=== PATIENT | male | born 1985 | race Caucasian/White ===

== ENCOUNTER 2024-09-07 21:11 | Emergency (ER) | payer OTHER, SELFPAY ==
--- NOTE | ~2024-09-07 | XR_ITS ---
CLINICAL HISTORY: deep laceration 3 view left hand Comparison: None Findings: Bones intact. No dislocations. No significant loss of joint space or osteophytes. No erosions. No radiopaque foreign body. IMPRESSION: 1. No acute findings This document has been electronically signed by: Edwin Penaloza MD, PHD on 09/07/2024 23:22:56
[2024-09-07 21:24] VITALS: BP 146/90; PULSE 116; RESP 12; TEMP 36.8; O2SAT 97; BMI 47.4
--- NOTE | 2024-09-08 00:07 | PC.NURSE ---
Pt resting comfortably on stretcher. Awaiting physician. Callbell in reach.
--- NOTE | 2024-09-08 01:06 | ED_ITS ---
HPI - Extremity Problem General Chief complaint: Extremity Injury, Upper Stated complaint: cut thumb on knife Time Seen by Provider: 09/08/24 01:06 Source: patient and family Mode of arrival: ambulatory Limitations: no limitations History of Present Illness ED Provider: Dr. Cisco Ludwig HPI Narrative: 39-year-old male who presents emergency department for evaluation of laceration to his left thumb. The patient was using a machete to cut down a vine. The machete was dull so he then went into his workshop, attached the machete to a clamp and was about to sharp in the machete when he accidentally cut his left thumb. Patient states that he ran his thumb under water for proximally 1 minute. He states that he saw bone and was unable to move his thumb and he was concerned that he may have injured a tendon. Patient states that his last tetanus shot was given 3 years prior. Related Data Previous Rx's ?Medication ?Instructions ?Recorded cephalexin 500 mg capsule 500 mg PO QID 10 days #40 caps 09/08/24 morphine 15 mg immediate release 15 mg PO Q6H PRN pain #10 tabs 09/08/24 tablet Allergies Allergy/AdvReac Type Severity Reaction Status Date / Time No Known Allergies Allergy Verified 09/07/24 21:29 [facility] Social History Social History Alcohol intake: current Alcohol intake frequency: 0-2 drinks per day Substance Use Type: Marijuana Physical Exam 2 Vital Signs: Vital Signs: Last Vital Signs Temp 98.3 F 09/08/24 03:06 Pulse 87 09/08/24 03:06 Resp 18 09/08/24 03:06 BP 133/72 09/08/24 03:06 Pulse Ox 97 09/08/24 03:06 O2 Del Method Room Air 09/08/24 03:06 BMI result Body Mass Index 47.4 Vital signs revealed an elevated blood pressure. Exam: Left thumb exam: Patient has an irregular shaped 2 cm laceration to the dorsal aspect of the thumb. There is an obvious lacerated tendon noted in the wound. The patient is unable to extend his thumb at the PIP joint. He has good capillary refill. He has a good 2 point discrimination. He has normal light touch. Medications Administered Discontinued Medications Generic Name Dose Route Start Last Admin Trade Name Freq PRN Reason Stop Dose Admin Bacitracin 2 appl 09/08/24 02:12 09/08/24 02:17 Bacitracin Oint 0.9 Gm Packet TOPICAL 09/08/24 02:13 2 appl ONCE ONE Administration Protocol Cefazolin Sodium 2 gm 09/08/24 01:44 09/08/24 01:56 Cefazolin Sodium 1 Gm Vial IV 09/08/24 01:45 2 gm ONCE ONE Administration Lidocaine HCl 5 ml 09/08/24 01:11 09/08/24 02:11 Lidocaine Hcl 1 % Mpf 5 Ml Vial INFILTRATI 09/08/24 01:12 5 ml ONCE STA Administration Lidocaine HCl 5 ml 09/08/24 01:11 09/08/24 02:11 Lidocaine Hcl 1 % Mpf 5 Ml Vial INFILTRATI 09/08/24 01:12 5 ml ONCE ONE Administration Lidocaine HCl 5 ml 09/08/24 01:11 09/08/24 02:59 Lidocaine Hcl 1 % Mpf 5 Ml Vial INFILTRATI 09/08/24 01:12 5 ml ONCE ONE Administration Medical Decision Making Medical Decision Making MDM Narrative: 39-year-old male who presents emergency department for evaluation of laceration to his left thumb. The patient was using a machete to cut down a vine. The machete was dull so he then went into his workshop, attached the machete to a clamp and was about to sharp in the machete when he accidentally cut his left thumb. Patient states that he ran his thumb under water for proximally 1 minute. He states that he saw bone and was unable to move his thumb and he was concerned that he may have injured a tendon. Patient states that his last tetanus shot was given 3 years prior. Physical examination revealed that the patient was unable to extend his thumb at the PIP joint and exploration of the wound revealed an obvious tendon laceration. Patient's sensory exam was normal with normal 2 point discrimination and normal light touch with normal capillary refill. Differential diagnosis: ?Includes but is not limited to laceration, tendon laceration, nerve injury, vascular injury Course: The patient's exam is consistent with an extensor tendon injury to the thumb. I did discuss over tiger text management of this laceration and tendon injury with the on-call orthopedic physician early childhood teacher assistant, Brittany Stevens. She recommended irrigating the wound, IV antibiotics and closing the wound. She also recommended placing the thumb in a thumb spica splint. The patient's wound was prepped with Betadine, anesthetized with 1% lidocaine and then irrigated with 200 cc of normal saline under pressure using an 18 gauge needle 20 cc syringe. The wound was then closed with 3.0 nylon sutures times 9 stitches. The patient was given Ancef 2 g IV. Patient was started on Keflex 500 mg 4 times a day for 10 days. He was advised to take Tylenol for pain and for pain not relieved by Tylenol he was prescribed morphine 15 mg every 6 hours as needed for pain. Patient was advised to contact the orthopedic office tomorrow to make a follow-up appointment with our hand surgeon, Dr. Paulina Smith. The patient did have an x-ray of his thumb and there is no acute fracture noted by me or the radiologist. Admission/Observation Consideration of admission/observation: Escalation of care including admission/observation considered (No) Radiology Impression Discussion of test interpretation with radiology: I have reviewed the radiologist's reading. Radiologist Impression: 3 view left hand Comparison: None Findings: Bones intact. No dislocations. No significant loss of joint space or osteophytes. No erosions. No radiopaque foreign body. IMPRESSION: 1. No acute findings This document has been electronically signed by: Edwin Penaloza MD, PHD on 09/07/2024 23:22:56 Independent Historian Clinical information obtained from an independent historian. History obtained from or confirmed by: Parent (Mother) Prescription Management I considered prescription management with: Pain Medication (Morphine) and Antibiotic (Keflex) Procedures Laceration Left thumb laceration: Site: hand (Thumb) Side (If applicable): left (Thumb) Size (cm): 2.0 Description: irregular Depth: involves muscle layer and involves tendon Local Anesthetic: lidocaine 1% Amount of anesthesia used (mL): 15 Pre-repair: wound explored (Extensor tendon laceration noted, no foreign body) and irrigated extensively (200 cc of normal saline using a 20 cc syringe and an 18 gauge needle) Skin layer closed with: nylon Size (cm): 3-0 Number of sutures: 9 Technique: simple, interrupted Orthopedic Splinting/Casting Left thumb spica splint: Side: left Upper Extremity Injury Location: finger (Thumb) Upper Extremity Immobilizer: thumb spica (3 in x 12 in ortho glass used) Additional Comments: Bacitracin applied to the wound then nonstick dressing was applied. This was held in place with Kerlix gauze. Three layers of cast padding in his then placed over the thumb wrist and forearm. 3 in x 12 in ortho glass used to create a thumb spica splint held in place my to 2 in Ramón wraps. After the splint was formed, patient's thumb was neurovascularly intact. Discharge Plan Discharge Clinical Impression: Laceration of left thumb, Laceration of tendon of thumb Patient Disposition: Home, Self-Care Instructions: Laceration (ED) Additional Instructions: You did cut an extensor tendon of your thumb. Keep the splint on until your re-evaluated by the orthopedic hand surgeon. Take Keflex (cephalexin) 500 mg pills, 1 pill 4 times a day for 7 days. Take Tylenol (acetaminophen) 2 pills every 6 hours as needed for pain. For pain not relieved by Tylenol take morphine 15 mg pills, 1 pill every 6 hours as needed for pain. This medication will make you sleepy, do not drive or work while taking this medication. Morphine is a narcotic medication and can be addicting. If you are concerned about addiction you can ask the pharmacist for less pills or do not get this prescription filled. Follow-up with our orthopedic hand surgeon, Dr. Smith within 2-5 days. Please call the office tomorrow morning to schedule an appointment. Please return to the emergency department if your symptoms get worse or if you develop any symptoms that are concerning to you. Prescriptions: New cephalexin 500 mg capsule 500 mg PO QID 10 Days Qty: 40 0RF morphine 15 mg tablet 15 mg PO Q6H PRN (Reason: pain) Qty: 10 0RF Rx Instructions: Partial Fill upon patient request. Referrals: Paulina Smith MD [Physician] - 5 days (Left thumb extensor tendon injury) Stand Alone Forms: Work/School Release Interventions: ED Discharge Assessment Last Done: 09/08/24 03:06 Discharge Date/Time: 09/08/24 03:20 Print Language: Slovenian
[2024-09-08] MEDS: ceFAZolin Sodium 1 GM VIAL 2 GM IV (01:56)
[2024-09-08] MEDS: Lidocaine HCl 1 % MPF 5 ML VIAL INFILTRATI ×3 (02:11→02:59)
[2024-09-08] MEDS: Bacitracin Oint 0.9 GM PACKET 2 APPL TOPICAL (02:17)
--- NOTE | 2024-09-08 03:00 | PC.NURSE ---
Per Dr. Ludwig, no lactic or cultures needed prior to antibiotic administration as this is prophylactic.
[2024-09-08 03:06] VITALS: BP 133/72; PULSE 87; RESP 18; TEMP 36.8; O2SAT 97
== END 2024-09-08 03:20 | disposition home or self-care (01) ==
PROVIDERS: Emergency Provider Emergency Medicine Emergency Medical Services
DX: S56.322A Laceration of extensor or abductor muscles, fascia and tendons of left thumb at forearm level, initial encounter (principal); S61.012A Laceration without foreign body of left thumb without damage to nail, initial encounter; W27.8XXA Contact with other nonpowered hand tool, initial encounter; Y93.89 Activity, other specified; Y92.9 Unspecified place or not applicable; Y99.9 Unspecified external cause status
CPT/HCPCS: 12041; 29130; 73130; 96374; 99284; J0690; J2003

== ENCOUNTER → 2024-09-07 22:37 | Outpatient (BNV) | payer OTHER, SELFPAY | PROVIDERS: Visit Provider General Practice | DX: S61.412A Laceration without foreign body of left hand, initial encounter (principal) | CPT/HCPCS: 73130 ==

== ENCOUNTER 2024-09-09 09:09 | Outpatient (AMB) | payer OTHER, SELFPAY ==
[2024-09-09 09:27] VITALS: BMI 47.4
--- NOTE | 2024-09-09 09:27 | MHC.OFFVIS ---
Vital Signs 09/09/24 09:27 Height 6 ft 1 in Weight 359 lb BMI 47.4 Intake Visit Reasons: ED f/u Laceration of left thumb Intake Note: Harpreet 39 yr old right hand dominant male presents today for a ED follow up visit for his left thumb laceration. Patient was using a machete to cut down a vine. The machete was dull so he then went into his workshop, attached the machete to a clamp and was about to sharp in the machete when he accidentally cut his left thumb. Patient states that he ran his thumb under water for proximally 1 minute. He states that he saw bone and was unable to move his thumb and he was concerned that he may have injured a tendon. His wound was cleaned, he was given a splint and referred to orthopedic. Currently states he is able to bend his thumb but is having difficulty lifting his thumb up. Denies numbness or tingling. Pain is currently a 2/10. Allergies No Known Allergies Allergy (Verified 09/09/24 09:32) HPI HPI ED f/u Laceration of left thumb: Details: Harpreet is a 39 year old right hand dominant man who presents for a left thumb laceration, DOI: 09/07/24. He was seen in the ED same day where this was cleaned & sutured, and given a course of Abx. He was doing yard work at home, and trying to sharpen a Machete. He had it clamped on his work table with the blade facing him, reached out to grab something from his work bench and inadvertently cut the dorsal aspect of his thumb on the sharp tip of the machete. He complains of pain & an inability to extend his thumb. He says he thought he saw bone in the laceration, and is worried he injured a tendon. He has been wearing his thumb splint. He says his pain is better this morning. He denies any numbness or tingling. 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 He says he can avoid those duties if necessary. 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 Review of Systems Const All systems reviewed & are unremarkable except as noted in HPI and below Physical Exam Vital Signs: BMI result Body Mass Index 47.4 Const General: cooperative, healthy appearing and no acute distress Orientation/consciousness: patient oriented x3 HEENT Head: Yes normocephalic and Yes atraumatic Eyes EOM: EOMs intact bilaterally Resp Effort & Inspection: normal respiratory effort and able to speak in complete sentences Cardio Jugular venous distension: no JVD Skin General skin exam: turgor normal Rashes: no rashes Neuro General: patient oriented x3 Extrem Other: Evaluation of Left Upper Extremity: The patient is alert, oriented, and in no acute distress Neuro: Median, Ulnar, Radial nerves motor and sensory intact and sensation is normal to the tips of all digits, including the pad of the thumb Vascular: Cap refill brisk ROM: He can bring all his fingers closed to a fist He can extend his index, middle, ring, and small fingers No extension at the thumb IP joint Skin: He has a longitudinally oriented S-shaped incision over left thumb dorsal aspect, including MCP joint, with one picture of a lacerated tendon seen on images from ED note from 09/08/24. The laceration is relatively clean with minimal serosanguineous drainage. Radiographs: 3 views of the left hand from 09/07/24 were reviewed by me today in clinic. They show no fractures or dislocations. Psych Appearance: grossly normal Affect: normal affect Attitude: cooperative Assessment & Plan Assessment & Plan (1) Laceration of left thumb with tendon involvement: Code(s): S61.012A - Laceration without foreign body of left thumb without damage to nail, initial encounter Category: Medical Plan Assessment & Plan: 1. Left thumb EPL tendon laceration, possibly EPB DOI: 09/07/24 2. Left thumb dorsal laceration Over the MCP joint DOI: 09/07/24 I educated him about these conditions I discussed operative and non-operative treatment options The patient would like to proceed with surgery The risks and benefits of operative treatment were discussed with the patient and the patient wishes to proceed with surgery. These risks include, but are not limited to risk of damage to blood vessels, nerves, tendons, infection, recurrence, incomplete relief of preoperative symptoms, persistent pain, possible need for further surgery and the risks associated with regional blocks and anesthesia. The plan is to take the patient to the operating room sometime on 09/11/24 for the following procedures: 1. Left thumb extensor tendon repair, under general 2. Left thumb I&D, under general All of the preoperative paperwork including the consent was reviewed today. All the patient's questions were answered. The patient understands that they will be contacted by our office machines teacher soon to schedule this procedure He denies Diabetes, blood thinners, asthma, heart, lung, kidney issues Scribed for Paulina Smith MD by Aj Valle, medical care manager, on 09/09/24 at 9:40 AM, EST. Medications: Discontinued morphine Partial Fill upon patient request. Discontinued Reason: Patient Completed Course 15 mg PO Q6H PRN 10 tabs 0RF pain Coding Level of Care Code New Pt Level 4 (85089) Diagnoses Laceration of left thumb with tendon involvement S61.012A
== END 2024-09-09 10:15 | disposition home or self-care (01) ==
LOC: HO.HOS 09:09
PROVIDERS: Visit Provider Orthopaedic Surgery
DX: S61.012A Laceration without foreign body of left thumb without damage to nail, initial encounter (principal)
CPT/HCPCS: 99204

== ENCOUNTER 2024-09-11 09:10 | Day surgery (SDC) | payer OTHER, SELFPAY ==
--- NOTE | 2024-09-10 10:18 | HO.ANESPROP2 ---
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 Allergies Allergy/AdvReac Type Severity Reaction Status Date / Time No Known Allergies Allergy Verified 09/11/24 09:17 Home Medications ?Medication ?Instructions ?Recorded ?Confirmed ?Last Taken ?Type omeprazole 40 mg capsule,delayed mg 09/11/24 09/11/24 09/11/24 History release Assessment and Plan Assessment Anesthesia Assessment: Chart Reviewed Documented by User: Kellen Chao MD 09/11/24 09:42 PMFSH Past Medical History Medical History Scalp cyst Family History Family history of problems with anesthesia: No Surgical History History of Problems with Anesthesia: No Social History Social History Alcohol intake: current Alcohol intake frequency: 0-2 drinks per day Substance Use Type: Marijuana Advance Directives: No Advance Directives Information Provided: Yes Current occupational status: employed 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 Allergies Allergy/AdvReac Type Severity Reaction Status Date / Time No Known Allergies Allergy Verified 09/11/24 09:17 Home Medications ?Medication ?Instructions ?Recorded ?Confirmed ?Last Taken ?Type omeprazole 40 mg capsule,delayed mg 09/11/24 09/11/24 09/11/24 History release Exam Airway Mallampati Class: II TM Dist: >3cm Neck ROM: Full Heart: rrr Lungs: cta Assessment and Plan Assessment Anesthesia Assessment: Anesthesia Plan Discussed Final Anesthetic Review Family History of Problems with Anesthesia: No History of Problems with Anesthesia: No NPO: Yes ASA Class: II Final Preanesthetic Review: No Changes in Pt Med Stat, Meds/Allgs Chart Reviewed, Consent Obtained/Reviewed and Anes Risks/Benef Reviewed Patient Risk: Intermediate Procedure Risk: Low Anesthetic Plan Anesthetic Plan: GA Disposition: Standard PACU
[2024-09-11] VITALS (7 sets, daily range): BP systolic 100–146; BP diastolic 60–95; PULSE 79–96; RESP 12–16; TEMP 36.4–37.2; O2SAT 95–99; BMI 39.3
[2024-09-11] MEDS: Lactated Ringers 1,000 ML 100 ML IVCONT (09:59)
[2024-09-11] MEDS: Famotidine/PF 20 MG/2 ML VIAL IVPUSH (10:07)
--- NOTE | 2024-09-11 11:03 | MHC.SHP ---
Pre-Procedural Eval Section A - 24 Hr Update-Section A only Date of Service: 09/11/24 The patient is an INPATIENT: No Changes since office visit: No Cold of Flu in the past 2 weeks, No New Medical Problems, No Changes in Medication and No Patient answered all questions The patient has been examined within 24 hours of the surgical procedure. The History & Physical has been completed within 30 days and I have reviewed it.: Yes Section B - Complete if H&P > 30 days Chief Complaint: Laceration of extensor muscle, fascia and tendon Allergies: Allergies Allergy/AdvReac Type Severity Reaction Status Date / Time No Known Allergies Allergy Verified 09/11/24 09:17 Plan I have reviewed the history and physical and performed a pertinent physical examination on my patient. No changes have occurred unless specified. Time Spent With Patient Time: Total time managing care of this patient today ____ minutes.
--- NOTE | 2024-09-11 11:04 | P.OP_ITS ---
Operative Note Operative Note Date of Service: 09/11/24 Narrative: Operative Note Narrative: Preop diagnosis: 1. Left dorsal thumb laceration 2. Left thumb EPL tendon laceration Postop diagnosis: 1. Left dorsal thumb laceration 6 cm 2. Laceration, multi segmental of left EPL tendon over the proximal phalanx 3. Laceration of the joint capsule to the left thumb MCP joint resulting in an open joint 4. Laceration of the left thumb MCP joint ulnar collateral ligament Procedure: 1. Left thumb extensor pollicis longus segmental laceration, Tendon repair 2. Left thumb I and D of open MCP joint 3. Left thumb MCP joint ulnar collateral ligament repair 4. Left thumb I and D open fracture of the ulnar base of the proximal phalanx 5. Left dorsal thumb wound repair 6 cm Surgeon: Paulina Smith MD Fiberglass Roller: Salvatore LUCERO Anesthesia: General Anesthesia Findings: Dorsal laceration of the left thumb over the proximal phalanx extending over the MCP joint to the distal aspect of the 1st metacarpal. Segmental laceration of the EPL tendon over the proximal phalanx resulting in a free segment of EPL tendon measuring almost 2 cm in length. The laceration also extended across the dorsal and ulnar aspect of the MCP joint resulting in an open MCP joint and a laceration of the MCP joint ulnar collateral ligament origin from the ulnar aspect of the 1st metacarpal head. Implants: None Tourniquet time: 43 minutes EBL: 5.0 ml Specimen: None Drains: None Complications: None Disposition: Brought to the recovery room in stable condition Plan: I changed his antibiotics to Augmentin as he had been using the machete in the yard prior to this accident. He will start these antibiotics today. Follow-up next week for wound check. He will need to be placed in a thumb spica splint holding the IP joint in extension. Anticipate suture removal at 2 weeks, and placement in a short-arm thumb spica cast until 5-6 weeks postop Indications: The patient is a 39 year old man with dirty machete laceration to the dorsum of the thumb with extensor tendon involvement. . The risks and benefits of operative treatment, including but not limited to risk of damage to blood vessels, nerves, tendons, infection, recurrence, persistent pain or numbn ess, incomplete resolution of preoperative symptoms, or need for further surgery were discussed with the patient and they wished to proceed with surgery. Procedure: Once consent was obtained patient was brought back to the operating suite and placed in the operating table in a supine position. . Perioperative antibiotics and anesthesia was administered by the anesthesia team. A tourniquet was applied to the proximal aspect of the left upper extremity and the limb was prepped and draped in a standard surgical fashion. The limb was elevated exsanguinated with Esmarch bandage and the tourniquet inflated to 250 mm of mercury for a total tourniquet time of 43 minutes. The sutures were removed from this 6 cm long, longitudinally oriented slightly S shaped laceration roughly centered over the dorsal aspect of the MCP joint of the patient's left thumb. I then explored this wound. Within this wound we found a segmental laceration of the EPL tendon over the proximal phalanx with a free fragment of tendon measuring almost 2 cm in length. We also found a laceration extending into the dorsal ulnar aspect of the left thumb MCP joint resulting in an open MCP joint. We also appreciated a bony fracture fragment off of the ulnar base of the proximal phalanx with a matching roughly 7 mm diameter area of matching cancellous bone on the ulnar base of the proximal phalanx. This being an open fracture care was taken to also debride this open bone. We also found the ulnar collateral ligament to be lacerated off of its origin in the ulnar head of the 1st metacarpal. We did not find any debris or evidence of infection. We set about with our I&D. The wound was copiously irrigated with normal saline. We used a small curette on the open fracture area in the base of the proximal phalanx. We also used an Angiocath on a 10 mL syringe to irrigate within the MCP joint of the thumb. I then repaired the ulnar collateral ligament and the dorsal capsule of the MCP joint using some 4-0 FiberWire suture. I then repaired the EPL tendon segment 1st to the distal aspect of the EPL tendon using 4-0 FiberWire, then I reduced the proximal end of the EPL tendon to the segment and repaired this portion of the EPL tendon again using some 4-0 FiberWire. At this point the tourniquet was deflated and hemostasis obtained with a brief period of local pressure The wound was again copiously irrigated with normal saline. I then repaired the 6 cm long laceration using 4-0 Prolene suture. The wound was infiltrated with some 1% lidocaine with epinephrine for postop pain control and a sterile dressing was applied. The patient was also placed in a short-arm thumb spica splint extending to the tip of the thumb holding the IP joint in extension. The patient appears to have tolerated the procedure well and with no complications. All digits were well vascularized conclusion of the case.
[2024-09-11] MEDS: ceFAZolin Sodium/Dextrose,Iso 2 GM/50 ML PIGGYBACK IV (11:35)
== END 2024-09-11 14:55 | disposition home or self-care (01) ==
PROVIDERS: Visit Provider Orthopaedic Surgery
PROC: (CPT 26418; principal; 2024-09-11 11:20)
DX: S66.222A Laceration of extensor muscle, fascia and tendon of left thumb at wrist and hand level, initial encounter (principal); S61.012A Laceration without foreign body of left thumb without damage to nail, initial encounter; S53.32XA Traumatic rupture of left ulnar collateral ligament, initial encounter; W26.8XXA Contact with other sharp object(s), not elsewhere classified, initial encounter; Y93.89 Activity, other specified; Y92.69 Other specified industrial and construction area as the place of occurrence of the external cause; Y99.9 Unspecified external cause status; Z79.899 Other long term (current) drug therapy
CPT/HCPCS: 26418; 26540; 26735; 11012; J0131; J0330; J0690; J1100; J1308; J1885; J2003; J2004; J2250; J2405; J2704; J2795; J3010

== ENCOUNTER → 2024-09-11 09:10 | Outpatient (BNV) | payer OTHER, SELFPAY | PROVIDERS: Visit Provider Orthopaedic Surgery | DX: S63.642A Sprain of metacarpophalangeal joint of left thumb, initial encounter (principal); S61.012A Laceration without foreign body of left thumb without damage to nail, initial encounter; S66.221A Laceration of extensor muscle, fascia and tendon of right thumb at wrist and hand level, initial encounter; S62.202B Unspecified fracture of first metacarpal bone, left hand, initial encounter for open fracture | CPT/HCPCS: 11012; 26418; 26540 ==

== ENCOUNTER 2024-09-16 12:54 | Outpatient (AMB) | payer OTHER, SELFPAY ==
--- NOTE | 2024-09-16 13:12 | MHC.OFFVIS ---
Vital Signs 09/16/24 13:18 Height 6 ft 1 in Handedness Right Intake Visit Reasons: PO LT thumb I&D/ext tend repair 09/11/24 AR Intake Note: Harpreet is a 39 year old right hand dominant male who presents today for a wound check s/p left thumb I&D extensor tendon repair 09/11/24 AR. Patient reports he is doing well. Having some soreness, 05/10 pain on the pain scale. Allergies No Known Allergies Allergy (Verified 09/16/24 13:17) HPI HPI PO LT thumb I&D/ext tend repair 09/11/24 AR: Details: The patient is a 39-year-old man who sustained a laceration to the dorsal aspect of his left thumb and EPL tendon while trying to clean a machete in his garage. Date of injury was 09/07/2024. He was taken to the operating room on 09/11/2024 and underwent the following procedures: 1. Left thumb extensor pollicis longus segmental laceration, Tendon repair 2. Left thumb I and D of open MCP joint 3. Left thumb MCP joint ulnar collateral ligament repair 4. Left thumb I and D open fracture of the ulnar base of the proximal phalanx 5. Left dorsal thumb wound repair 6 cm He said that he is doing well and not taking any pain medication. 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 The laceration over the dorsal aspect of his left thumb appears to be healing well with no erythema drainage or evidence of infection. Sutures are in place. The thumb is held in an extended position. He can bring his fingers close to a fist and back into extension Assessment & Plan Assessment & Plan (1) Laceration of left thumb with tendon involvement: Code(s): S61.012A - Laceration without foreign body of left thumb without damage to nail, initial encounter Category: Medical (2) Open fracture of left thumb: Code(s): S62.502B - Fracture of unspecified phalanx of left thumb, initial encounter for open fracture Category: Medical Plan Assessment and plan: 1. Left dorsal thumb laceration from a machete s/p: 1. Left thumb extensor pollicis longus segmental laceration, Tendon repair 2. Left thumb I and D of open MCP joint 3. Left thumb MCP joint ulnar collateral ligament repair 4. Left thumb I and D open fracture of the ulnar base of the proximal phalanx 5. Left dorsal thumb wound repair 6 cm Date of surgery 09/11/2024 Patient appears to be doing well postoperatively I educated him about the postoperative course We placed a new dressing and placed him back in a short-arm thumb spica splint. He knows not to take it off or bend his thumb. Follow up next week for a wound check and placement in a short-arm thumb spica cast. Finish all of his antibiotics Coding Level of Care Code Global (24670) Diagnoses Laceration of left thumb with tendon involvement S61.012A Open fracture of left thumb S62.502B
== END 2024-09-16 14:16 | disposition home or self-care (01) ==
LOC: HO.HOS 12:55
PROVIDERS: Visit Provider Orthopaedic Surgery
DX: S61.012A Laceration without foreign body of left thumb without damage to nail, initial encounter (principal); S62.502B Fracture of unspecified phalanx of left thumb, initial encounter for open fracture
CPT/HCPCS: 99024

== ENCOUNTER 2024-09-24 10:20 | Outpatient (AMB) | payer OTHER, SELFPAY ==
--- NOTE | 2024-09-24 10:22 | A.OFFVIS_ITS ---
Vital Signs 09/24/24 10:22 Height 6 ft 1 in Intake Visit Reasons: PO LT thumb I&D/ext tend repair 09/11/24 AR Intake Note: Harpreet 39 yr old male presents today for his PO visit for his left thumb I&D/ext tend repair 09/11/24 AR. Area cleaned, sutures removed and steri strips applied. State he has no pain and has not taken any of the pain medication. Allergies No Known Allergies Allergy (Verified 09/24/24 10:30) HPI HPI PO LT thumb I&D/ext tend repair 09/11/24 AR: Details: Harpreet is a 39 year old right hand dominant man who sustained a laceration to the dorsal aspect of his left thumb and EPL tendon while trying to clean a machete in his garage. DOI: 09/07/24. He was taken to the operating room on 09/11/24 and underwent the following procedures: 1. Left thumb extensor pollicis longus segmental laceration, Tendon repair 2. Left thumb I&D of open MCP joint 3. Left thumb MCP joint ulnar collateral ligament repair 4. Left thumb I and D open fracture of the ulnar base of the proximal phalanx 5. Left dorsal thumb wound repair 6cm He said that he is doing well overall. 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 The laceration over the dorsal aspect of his left thumb appears to be healing well with no erythema drainage or evidence of infection. Sutures removed and steri-strips applied The thumb is held in an extended position. He can bring his fingers close to a fist and back into extension Sensation intact to the tips of the thumb Psych Appearance: grossly normal Affect: normal affect Attitude: cooperative Assessment & Plan Assessment & Plan (1) Laceration of left thumb with tendon involvement: Code(s): S61.012A - Laceration without foreign body of left thumb without damage to nail, initial encounter Category: Medical (2) Open fracture of left thumb: Code(s): S62.502B - Fracture of unspecified phalanx of left thumb, initial encounter for open fracture Category: Medical Plan Assessment and plan: 1. Left dorsal thumb laceration from a machete s/p: 1. Left thumb extensor pollicis longus segmental laceration, Tendon repair 2. Left thumb I and D of open MCP joint 3. Left thumb MCP joint ulnar collateral ligament repair 4. Left thumb I and D open fracture of the ulnar base of the proximal phalanx 5. Left dorsal thumb wound repair 6 cm DOS: 09/11/24 DOI: 09/07/24 Patient appears to be doing well postoperatively I educated him about the postoperative course Sutures removed today. He was placed in a short arm thumb spica cast, to be warn for the next 4 weeks I explained the signs and symptoms of infection, if the patient develops any new or worsening erythema, drainage, pain, or warmth they should contact the clinic or attend the ED. He has completed his Abx as instructed. I discussed activity modifications, he is to lift nothing heavier than a cellphone for the next 4 weeks He will perform gentle ROM exercises at home He works in sales, primarily on the computer. I encouraged him to use his hand for typing and other gentle finger ROM activities, with a 2lb weight limit for the next 4 weeks He will follow up in 4 weeks with Salvatore to see how he is doing. I ordered OT hand therapy to begin in 4 weeks, after his cast is removed.? Scribed for Paulina Smith MD by Aj Valle, lpn medical assistant, on 09/24/24 at 10:40 AM, EST. Orders: Orders OT Evaluation and Treatment Today S61.012A - Laceration without foreign body of left thumb without damage to nail, initial encounter, S62.502B - Fracture of unspecified phalanx of left thumb, initial encounter for open fracture Coding Level of Care Code Global (81011) Diagnoses Laceration of left thumb with tendon involvement S61.012A Open fracture of left thumb S62.502B
== END 2024-09-24 11:29 | disposition home or self-care (01) ==
LOC: HO.HOS 10:20
PROVIDERS: Visit Provider Orthopaedic Surgery
DX: S61.012A Laceration without foreign body of left thumb without damage to nail, initial encounter (principal); S62.502B Fracture of unspecified phalanx of left thumb, initial encounter for open fracture
CPT/HCPCS: 99024

== ENCOUNTER 2024-10-22 10:13 | Outpatient (AMB) | payer OTHER, SELFPAY ==
--- NOTE | 2024-10-22 10:17 | A.OFFVIS_ITS ---
Vital Signs 10/22/24 10:29 Height 6 ft 1 in Weight 290 lb BMI 38.3 Handedness Right Intake Visit Reasons: PO LT thumb I&D/ext tend repair 09/11/24 AR Intake Note: Harpreet is a 39 year old right hand dominant man who presents today post operatively for the following procedures, DOS: 09/11/24: 1. Left thumb extensor pollicis longus segmental laceration, Tendon repair 2. Left thumb I&D of open MCP joint 3. Left thumb MCP joint ulnar collateral ligament repair 4. Left thumb I&D open fracture of the ulnar base of the proximal phalanx 5. Left dorsal thumb wound repair 6cm At his last visit he was placed in a short arm cast and was advise to limit use of left hand. Reports mild tingling in the left thumb. He says he has sensation in the left thumb and extreme stiffness. He states therapy on October 27 2024. Cast was removed in office and xrays updated. Allergies No Known Allergies Allergy (Verified 10/22/24 10:28) HPI HPI PO LT thumb I&D/ext tend repair 09/11/24 AR: Details: Harpreet is a 39 year old right hand dominant man who presents today post operatively for the following procedures, DOS: 09/11/24: 1. Left thumb extensor pollicis longus segmental laceration, Tendon repair 2. Left thumb I&D of open MCP joint 3. Left thumb MCP joint ulnar collateral ligament repair 4. Left thumb I&D open fracture of the ulnar base of the proximal phalanx 5. Left dorsal thumb wound repair 6cm At his last visit he was placed in a short arm cast and was advise to limit use of left hand. Reports mild tingling in the left thumb. He says he has sensation in the left thumb and extreme stiffness. He states therapy on October 27 2024. 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 The laceration over the dorsal aspect of his left thumb appears to be healing well with no erythema drainage or evidence of infection. Sutures removed and steri-strips applied The thumb is held in an extended position. He can bring his fingers close to a fist and back into extension Sensation intact to the tips of the thumb Psych Appearance: grossly normal Affect: normal affect Attitude: cooperative Assessment & Plan Assessment & Plan (1) Laceration of left thumb with tendon involvement: Code(s): S61.012A - Laceration without foreign body of left thumb without damage to nail, initial encounter Category: Medical (2) Open fracture of left thumb: Code(s): S62.502B - Fracture of unspecified phalanx of left thumb, initial encounter for open fracture Category: Medical Plan Assessment and plan: 1. Left dorsal thumb laceration from a machete s/p: 1. Left thumb extensor pollicis longus segmental laceration, Tendon repair 2. Left thumb I and D of open MCP joint 3. Left thumb MCP joint ulnar collateral ligament repair 4. Left thumb I and D open fracture of the ulnar base of the proximal phalanx 5. Left dorsal thumb wound repair 6 cm DOS: 09/11/24 DOI: 09/07/24 Patient appears to be doing well postoperatively I educated him about the postoperative course Patient will start OT this week to begin early range of motion of the left thumb Patient is also provided with a comfort cool thumb spica brace to be worn with daytime activities to protect the surgery site I discussed activity modifications, he is to lift nothing heavier than a cellphone for the next 4 weeks He will perform gentle ROM exercises at home He works in sales, primarily on the computer. I encouraged him to use his hand for typing and other gentle finger ROM activities, with a 2lb weight limit for the next 4 weeks Follow-up in 4 weeks for [id number] check, sooner with any acute concerns Coding Level of Care Code Global (85372) Diagnoses Laceration of left thumb with tendon involvement S61.012A Open fracture of left thumb S62.502B
[2024-10-22 10:29] VITALS: BMI 38.3
--- OUTSIDE RECORDS SUMMARY | 2024-10-22 10:46 | XMS_ITS | Clinical Summary ---
Author Organization 175 [facility] Address [address] [place] [address] Phone Care Team Providers Care Amphibious Operations Officer Name Role Phone Unavailable Primary Care Provider Unavailabl e Surgical History Surgery Date Site/Laterality Comments OTHER SURGICAL HISTORY 1997 PROCEDURE: DC UNLISTED PROCEDURE LACRIMAL SYSTEM Medical History Medical History Date Comments Eczema 03/08/2011 DX:Eczema Family History Medical History Relation Name Comments Sleep apnea Father Other cancer Maternal Grandmother Breast cancer Paternal Grandmother Relation Name Status Comments Father Maternal Grandmother Paternal Grandmother Social History Tobacco Use Types Packs/Day Years Used Date Smoking Tobacco: Never Smokeless Tobacco: Never Alcohol Use Standard Drinks/Week Comments Yes 8.3 (1 standard drink = 0.6 oz p ure alcohol) Sex and Gender Information Value Date Recorded Sex Assigned at Not on file Legal Sex Male 2:01 AM EST Gender Identity Not on file Sexual Orientation Not on file Obstetrics History Plan of Treatment Upcoming Encounters Date Type Department Care Team ([facility] Contact Info) Description 11/03/2024 11:00 AM EDT Office Visit General Surgery [facility] [address] [phone] Pito Eason MD [address] [address] Health Maintenance Due Date Last Done Comments COVID-19 Vaccine (2023- season) 2023 DTaP,Tdap,and Td Vaccines (8 - Td or Tdap) 10/07/2024 10/07/2014, 06/22/1998, 05/03/1992, Additional history exists Cholesterol Screening (Lipid Panel) 10/15/2024 Depression Screening 10/15/2024 HIV Screening 10/15/2024 Hepatitis C Screening 10/15/2024 Social Influencers of Health Screening 10/15/2024 Influenza Vaccine (Season Ended) 2024 IPV Vaccines Completed 05/03/1992, 10/21, 1987, Additional history exists MMR Vaccines Completed 06/22/1998, 09/01/1988 Hepatitis B Vaccines Completed 06/09/1999, 07/26/1998, 06/22/1998 Meningococcal ACWY Vaccine Completed 10/16/2005 HIB Vaccines Aged Out No longer eligi ble based on patient's age to complete this topic HPV Vaccines Aged Out No longer eligi ble based on patient's age to complete this topic Hepatitis A Vaccines Aged Out No long er eligible based on patient's age to complete this topic Meningococcal B Vaccine Aged Out No l onger eligible based on patient's age to complete this topic Pneumococcal Vaccine: Pediatrics (0 to 5 Years) and At-Risk Patients (6 to 64 Years) Aged Out No longer eligible based on patient's age to complete this topic RSV Immunization Patients Under 20 months Aged Out No longer eligible based on patient's age to complete this topic Varicella Vaccines Aged Out No longer eligible based on patient's age to complete this [place] [id number] [employer]
== END 2024-10-22 10:47 | disposition home or self-care (01) ==
LOC: HO.HOS 10:14
DX: S61.012A Laceration without foreign body of left thumb without damage to nail, initial encounter (principal); S62.502B Fracture of unspecified phalanx of left thumb, initial encounter for open fracture
CPT/HCPCS: 99024

== ENCOUNTER 2024-11-19 13:26 | Outpatient (AMB) | payer OTHER, SELFPAY ==
--- NOTE | 2024-11-19 13:33 | A.OFFVIS_ITS ---
Vital Signs 11/19/24 13:36 Height 6 ft 1 in Weight 290 lb BMI 38.3 Handedness Right Intake Visit Reasons: PO LT thumb I&D/ext tend repair 09/11/24 AR-ROM chk Intake Note: Harpreet is a 39 year old right hand dominant man who presents today for a range of motion check after undergoing the following procedures, DOS: 09/11/24: 1. Left thumb extensor pollicis longus segmental laceration, tendon repair 2. Left thumb I&D of open MCP joint 3. Left thumb MCP joint ulnar collateral ligament repair 4. Left thumb I&D open fracture of the ulnar base of the proximal phalanx 5. Left dorsal thumb wound repair 6cm At his last visit he was referred to OT to start the same week to begin early range of motion of the left thumb. He was also provided with a comfort cool thumb spica brace to be worn with daytime activities to protect the surgery site. Patient was reminded on activity modifications: lift nothing heavier than a cellphone for the next 4 weeks and to perform gentle ROM exercises at home. Patient reports he is on week 4 of OT and states it is going very well. He finds improvement in ROM, expresses he had major stiffness and weekly it is getting better. Denies pain. He has residual swelling. He has concern of the hyperextension of his left thumb and if tis will return or improve. Allergies No Known Allergies Allergy (Verified 11/19/24 13:38) HPI HPI PO LT thumb I&D/ext tend repair 09/11/24 AR-ROM chk: Details: Harpreet is a 39 year old right hand dominant man who presents today for a range of motion check after undergoing the following procedures, DOS: 09/11/24: 1. Left thumb extensor pollicis longus segmental laceration, tendon repair 2. Left thumb I&D of open MCP joint 3. Left thumb MCP joint ulnar collateral ligament repair 4. Left thumb I&D open fracture of the ulnar base of the proximal phalanx 5. Left dorsal thumb wound repair 6cm At his last visit he was referred to OT to start the same week to begin early range of motion of the left thumb. He was also provided with a comfort cool thumb spica brace to be worn with daytime activities to protect the surgery site. Patient was reminded on activity modifications: lift nothing heavier than a cellphone for the next 4 weeks and to perform gentle ROM exercises at home. Patient reports he is on week 4 of OT and states it is going very well. He finds improvement in ROM, expresses he had major stiffness and weekly it is getting better. Denies pain. He has residual swelling. He has concern of the hyperextension of his left thumb and if tis will return or improve. 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 The laceration over the dorsal aspect of his left thumb appears to be well hea led The thumb is held in an extended position, able to be flexed actively at this time with active extension back to neutral of the IP joint He can bring his fingers close to a fist and back into extension Sensation intact to the tips of the thumb Psych Appearance: grossly normal Affect: normal affect Attitude: cooperative Assessment & Plan Assessment & Plan (1) Laceration of left thumb with tendon involvement: Code(s): S61.012A - Laceration without foreign body of left thumb without damage to nail, initial encounter Category: Medical (2) Open fracture of left thumb: Code(s): S62.502B - Fracture of unspecified phalanx of left thumb, initial encounter for open fracture Category: Medical Plan Assessment and plan: 1. Left dorsal thumb laceration from a machete s/p: 1. Left thumb extensor pollicis longus segmental laceration, Tendon repair 2. Left thumb I and D of open MCP joint 3. Left thumb MCP joint ulnar collateral ligament repair 4. Left thumb I and D open fracture of the ulnar base of the proximal phalanx 5. Left dorsal thumb wound repair 6 cm DOS: 09/11/24 DOI: 09/07/24 Patient appears to be doing well postoperatively I educated him about the postoperative course Patient will start OT this week to begin early range of motion of the left thumb Patient is also provided with a comfort cool thumb spica brace to be worn with daytime activities to protect the surgery site I discussed activity modifications, he is to lift nothing heavier than a 5 lbs for the next 4 weeks He will perform gentle ROM exercises at home He works in sales, primarily on the computer. I encouraged him to use his hand for typing and other gentle finger ROM activities, with a 2lb weight limit for the next 4 weeks Follow-up in 6 weeks for [id number] check, sooner with any acute concerns Coding Level of Care Code Global (11855) Diagnoses Laceration of left thumb with tendon involvement S61.012A Open fracture of left thumb S62.502B
[2024-11-19 13:36] VITALS: BMI 38.3
--- OUTSIDE RECORDS SUMMARY | 2024-11-19 13:59 | XMS_ITS | Clinical Summary ---
Author Organization [address] [place] [address] Address [address] [place] [address] Phone Care Team Providers Care Working Second Hand Name Role Phone Unavailable Primary Care Provider Unavailabl e Allergies No known active allergies Medications omeprazole (PriLOSEC) [address] capsule Take 1 capsule (40 mg total) by mouth daily. 02/18/2019 Active Encounters Date Type Department Care Team Description 11/07/2024 9:00 AM EDT Procedure visit [address] [address] Pito Eason MD Pilar cyst of scalp (Primary Dx) 11/04/[address] [address] Pito Eason MD Prior Authorization (11/07/24 Dr. Pito Eason) 11/03/2024 11:00 AM EDT Office Visit [address] [address] Pito Eason MD Pilar cyst of scalp (Primary Dx) from Last 3 Months Surgical History Surgery Date Site/Laterality Comments OTHER SURGICAL HISTORY 1997 PROCEDURE: [place] UNLISTED PROCEDURE LACRIMAL SYSTEM Medical History Medical [...] Sexual Orientation Not on file Obstetrics History Last Filed Vital Signs Vital Sign Reading Time Taken Comments Blood Pressure 146/91 11/07/2024 8:58 AM EDT Pulse 82 11/07/2024 8:58 AM EDT Temperature 36.6 C (97.8 F) 11/03/2024 11:05 AM EDT Respiratory Rate - - Oxygen Saturation - - Inhaled Oxygen Concentration - - Weight 137 kg (302 lb 0.5 oz) 11/07/2024 8:58 AM EDT Height 185.4 cm (6' 1 ) 11/07/2024 8:58 AM EDT Body Mass Index 39.85 11/07/2024 8:58 AM EDT Plan of Treatment Upcoming Encounters Date Type Department Care Team ([facility] st Contact Info) Description 11/20/2024 1:30 PM EDT Clinical Support General Surgery - [address] [place] [address] Health Maintenance Due Date Last Done Comments COVID-19 Vaccine ( season) 2023 08/26/2020, 08/05/2020 Depression Screening 04/23/2024 Cholesterol Screening (Lipid Panel) 10/15/2024 HIV Screening 10/15/2024 Hepatitis C Screening 10/15/2024 Social Influencers of Health Screening 10/15/2024 Influenza Vaccine (#1) 2024 DTaP,Tdap,and Td Vaccines (9 - Td or Tdap) 02/21/2032 02/20/2022, 10/07/2014, 06/22/1998, Additional history exists IPV Vaccines Completed 05/03/1992, 10/21, 1987, Additional [...] 5 Years) and At-Risk Patients (6 to 49 Years) Aged Out No longer eligible based on patient's age to complete this topic RSV Immunization Patients Under 20 months Aged Out No longer eligible based on patient's age to complete this topic Varicella Vaccines Aged Out No longer eligible based on patient's age to complete this topic Procedures Procedure Name Priority Date/Time Associated Diagnosis Comments TISSUE EXAM Routine 11/07/2024 9:31 AM EDT Pilar cyst of scalp from Last 3 Months Results * Tissue Exam (11/07/2024 9:31 AM EDT) Final Diagnosis Skin, scalp-excision: -PILAR CYST 11/11/2024 9:03 AM EDT [facility] Clinical Information Pilar cyst of scalp (L72.11) 11/11/2024 9:03 AM EDT [facility] Gross Description A. Scalp, Cyst: Labeled scalp . Received in formalin is an intact, rubbery, white, 1.5 x 1.4 x 1.1 cm unilocular cyst. Skin is absent. The margin is inked blue and the specimen is sectioned. The cyst contains white firm to friable material which is adherent to the cyst lining. A pharmacy sales representative cross-section is submitted in one cassette, one piece. TS 11/11/2024 9:03 AM [facility] Disclaimer Unless otherwise specified, all tissue is 10% NB formalin fixed and paraffin embedded. 11/11/2024 9:03 AM [facility] Tissue Scalp structure / Unknown Non-blood Collection / Unknown 11/07/2024 9:31 AM EDT 11/07/2024 9:45 AM EDT us Pito Eason MD LAB PATHOLOGY ORDERABLES Final Result [facility] [address] [place] [address], [place] [phone] from Last 3 Months Insurance [employer]
--- OUTSIDE RECORDS SUMMARY | 2024-11-19 13:59 | XMS_ITS | Clinical Summary ---
Author Organization [facility] Address [address] [place] [address] Phone Care Team Providers Care Inventory Planner Name Role Phone Pcp, Unknown Primary Care Provider Unavailabl e Allergies No known active allergies Medications omeprazole (PRILOSEC) 40 MG capsule Take 40 mg by mouth daily. Active Immunizations Immunization Administration Dates Next Due DTP 05/03/1992, 9,1987,09/08,1987 Hepatitis B Adult 06/09/1999,07/26/1998,06/22/18 99 MMR 06/22/1998,09/01/1988 Meningococcal MCV4P 10/16/2005 Polio - OPV 05/03/1992, 9,1987,06/27 Td (adult),2 Lf Tetanus Toxo id, PF, Adsorbed 06/22/1998 Tdap 02/20/2022,10/07/2014 Social History Tobacco Use Types Packs/Day Years Used Date Smoking Tobacco: Never Smokeless Tobacco: Never Alcohol Use Standard Drinks/Week Comments Yes 0 (1 standard drink = 0.6 oz pur e alcohol) Occassioanlly Education Answer Date Recorded Are you interested in more education? Not on usha e 08/19/2022 Are you concerned about learning? Not on file 08/19/2022 No 08/19/2022 No 08/19/2022 Digital Access Answer Date Recorded No 09/17/2022 No 09/17/2022 No 09/17/2022 Reliable internet access at home? Not on file 09/17/2022 Device with a working camera? Not on file Sex and Gender Information Value Date Recorded Sex Assigned at Not on file Legal Sex Male 5:24 PM EDT Gender Identity Not on file Sexual Orientation Not on file Last Filed Vital Signs Vital Sign Reading Time Taken Comments Blood Pressure 122/80 02/20/2022 6:40 PM EDT Pulse 82 02/20/2022 6:40 PM EDT Temperature 36.4 C (97.5 F) 02/20/2022 6:40 PM EDT Respiratory Rate 16 02/20/2022 6:40 PM EDT Oxygen Saturation 98% 02/20/2022 6:40 PM EDT Inhaled Oxygen Concentration - - Weight 131.5 kg (290 lb) 02/20/2022 6:40 PM EDT Height 185.4 cm (6' 1 ) 02/20/2022 6:40 PM EDT Body Mass Index 38.26 02/20/2022 6:40 PM EDT Plan of Treatment Health Maintenance Due Date Last Done Comments LIPID PANEL 1987 DEPRESSION SCREENING 1999 HEPATITIS C SCREENING 2005 HIV ONE-TIME SCREENING (18-6 5 YEARS) 2005 SCREENING FOR DIABETES 2022 COVID-19 VACCINE (3 - 2023-2 5 season) 2023 08/26/2020, 08/05/2020 Adult Td,Tdap Booster 02/21/2032 02/20/2022 , 10/07/2014, 06/22/1998 MENINGOCOCCAL VACCINES (ACWY) Completed 10/16/2005 SMOKING STATUS SCREENING (On ce After 26 Yrs) Completed 02/20/2022 HEPATITIS A VACCINES Aged Out No long er eligible based on patient's age to complete this topic HIB VACCINES Aged Out No longer eligi ble based on patient's age to complete this topic MENINGOCOCCAL VACCINES (B) Aged Out N o longer eligible based on patient's age to complete this topic PNEUMOCOCCAL VACCINES (0-49 years) Aged Out No longer eligible b ased on patient's age to complete this topic Medical Devices Not on file Insurance AETNA HMO [facility] E[facility] EPO Care Teams Inventory Planner Relationship Specialty Start Date End Date Pcp, Unknown PCP - General 02/20/22 Additional Source Comments The information contained in this document represents components of the legal health record. It is not the complete legal health record.[facility]
== END 2024-11-19 13:52 | disposition home or self-care (01) ==
LOC: HO.HOS 13:27
DX: S61.012A Laceration without foreign body of left thumb without damage to nail, initial encounter (principal); S62.502B Fracture of unspecified phalanx of left thumb, initial encounter for open fracture
CPT/HCPCS: 99024

== ENCOUNTER 2024-12-31 11:31 | Outpatient (AMB) | payer OTHER, SELFPAY ==
[2024-12-31 11:34] VITALS: BMI 38.3
--- NOTE | 2024-12-31 11:34 | A.OFFVIS_ITS ---
Vital Signs 12/31/24 11:34 Height 6 ft 1 in Weight 290 lb BMI 38.3 Intake Visit Reasons: OV - LT thumb I&D/ext tend repair 09/11/24 Intake Note: Harpreet is a 39 year old right hand dominant man who presents today for a follow up visit and range of motion check after undergoing the following procedures, DOS: 09/11/24: 1. Left thumb extensor pollicis longus segmental laceration, tendon repair 2. Left thumb I&D of open MCP joint 3. Left thumb MCP joint ulnar collateral ligament repair 4. Left thumb I&D open fracture of the ulnar base of the proximal phalanx 5. Left dorsal thumb wound repair 6cm At his last visit he was advised to remain on 5 lb weight restriction for 4 more weeks. Patient reports he is doing wekk. He continues going to Occupational Therapy and working on ROM excercises at home. Denies pain, numbness, tingling, finger locking. Allergies No Known Allergies Allergy (Verified 12/31/24 11:39) HPI HPI OV - LT thumb I&D/ext tend repair 09/11/24: Details: Harpreet is a 39 year old right hand dominant man who presents today for a follow up visit and range of motion check after undergoing the following procedures, DOS: 09/11/24: 1. Left thumb extensor pollicis longus segmental laceration, tendon repair 2. Left thumb I&D of open MCP joint 3. Left thumb MCP joint ulnar collateral ligament repair 4. Left thumb I&D open fracture of the ulnar base of the proximal phalanx 5. Left dorsal thumb wound repair 6cm At his last visit he was advised to remain on 5 lb weight restriction for 4 more weeks. Patient reports he is doing well. He continues going to Occupational Therapy and working on ROM excercises at home. Denies pain, numbness, tingling, finger locking. 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 The laceration over the dorsal aspect of his left thumb appears to be well healed Range of motion of the left thumb is full and intact at this time He can bring his fingers close to a fist and back into extension Sensation intact to the tips of the thumb Psych Appearance: grossly normal Affect: normal affect Attitude: cooperative Assessment & Plan Assessment & Plan (1) Laceration of left thumb with tendon involvement: Code(s): S61.012A - Laceration without foreign body of left thumb without damage to nail, initial encounter Category: Medical (2) Open fracture of left thumb: Code(s): S62.502B - Fracture of unspecified phalanx of left thumb, initial encounter for open fracture Category: Medical Plan Assessment and plan: 1. Left dorsal thumb laceration from a machete s/p: 1. Left thumb extensor pollicis longus segmental laceration, Tendon repair 2. Left thumb I and D of open MCP joint 3. Left thumb MCP joint ulnar collateral ligament repair 4. Left thumb I and D open fracture of the ulnar base of the proximal phalanx 5. Left dorsal thumb wound repair 6 cm DOS: 09/11/24 DOI: 09/07/24 Patient appears to be doing well postoperatively I educated him about the postoperative course Continue OT No further bracing indicated Patient may begin slowly returning back to full normal lifting over the next 4-6 weeks He will perform ROM exercises at home He works in sales, primarily on the computer. I encouraged him to use his hand for typing and other gentle finger ROM activities, with a gradual return to full normal lifting Follow-up as needed with any acute concerns Coding Level of Care Code Est Pt Level 3 (80680) Diagnoses Laceration of left thumb with tendon involvement S61.012A Open fracture of left thumb S62.502B
--- OUTSIDE RECORDS SUMMARY | 2024-12-31 14:40 | XMS_ITS | Clinical Summary ---
Author Organization [address] [facility] Address [address] [place] [address] Phone Care Team Providers Care Senior Financial Accountant Name Role Phone Unavailable Primary Care Provider Unavailabl e Allergies No known active allergies Medications omeprazole (PriLOSEC) [address] capsule Take 1 capsule (40 mg total) by mouth daily. 02/18/2019 Active Encounters Date Type Department Care Team Description 11/20/2024 1:30 PM EDT Clinical Support [address] [address] Visit for suture removal (Primary Dx) 11/07/2024 9:00 AM EDT Procedure visit [address] [address] Pito Eason MD Pilar cyst of scalp (Primary Dx) 11/04/[address] [address] Pito Eason MD 11/03/2024 11:00 AM EDT Office Visit [address] [address] Pito Eason MD Pilar cyst of scalp (Primary Dx) from Last 3 Months Surgical History Surgery Date Site/Laterality Comments OTHER SURGICAL HISTORY 1997 PROCEDURE: [place] UNLISTED PROCEDURE LACRIMAL SYSTEM Medical History Medical [...] 11/07/2024 8:58 AM EDT Plan of Treatment Health Maintenance Due Date Last Done Comments Depression Screening 04/23/2024 Cholesterol Screening (Lipid Panel) 10/15/2024 HIV Screening 10/15/2024 Hepatitis C Screening 10/15/2024 Social Influencers of Health Screening 10/15/2024 COVID-19 Vaccine ( season) 2024 08/26/2020, 08/05/2020 Influenza Vaccine (#1) 2024 DTaP,Tdap,and Td Vaccines [...] Procedure Name Priority Date/Time Associated Diagnosis Comments SUTURE REMOVAL Routine 11/20/2024 1:32 PM EDT Visit for suture removal TISSUE EXAM Routine 11/07/2024 9:31 AM EDT Pilar cyst of scalp from Last 3 Months Results * SUTURE REMOVAL (11/20/2024 1:32 PM EDT) Bhumika Parikh MA - 11/20/2024 1:32 PM EDT Bhumika Gomez MA 11/20/2024 1:34 PM Suture Removal Date/Time: 11/20/2024 1:32 PM Performed by: Bhumika Gomez MA Authorized by: Pito Eason MD Location: Location: Head/neck Head/neck location: Scalp Procedure details: Wound appearance: No signs of infection, good wound healing and clean Number of brandy removed: 5 Post-procedure details: Post-removal: No dressing applied Procedure completion: Tolerated Pito Eason MD IN CLINIC/BEDSIDE ORDERABLES Fi nal Result * Tissue Exam (11/07/2024 9:31 AM EDT) Final Diagnosis Skin, scalp-excision: -PILAR CYST 11/11/2024 9:03 AM ED[facility] Clinical Information Pilar cyst of scalp (L72.11) 11/11/2024 9:03 AM EDT [facility] Gross Description A. Scalp, Cyst: Labeled scalp . Received in formalin is an intact, rubbery, white, 1.5 x 1.4 x 1.1 cm unilocular cyst. Skin is absent. The margin is inked blue and the specimen is sectioned. The cyst contains white firm to friable material which is adherent to the cyst lining. A product representative cross-section is submitted in one cassette, one piece. TS 11/11/2024 9:03 AM EDT [facility] Disclaimer Unless otherwise specified, all tissue is 10% NB formalin fixed and paraffin embedded. 11/11/2024 9:03 AM EDT [facility] Tissue Scalp structure / Unknown Non-blood Collection / Unknown 11/07/2024 9:31 AM EDT 11/07/2024 9:45 AM EDT Pito Eason MD LAB PATHOLOGY ORDERABLES Final Result [facility] [address] [place] [address], from Last 3 Months Insurance [employer]
--- OUTSIDE RECORDS SUMMARY | 2024-12-31 14:40 | XMS_ITS | Clinical Summary ---
Author Organization Located [facility] Address [address] [place] [phone] Phone Care Team Providers Care Oncology Pharmacist Name Role Phone Pcp, Unknown Primary Care [...] 5 YEARS) 2005 SCREENING FOR DIABETES 2022 INFLUENZA VACCINE (#1) 2024 COVID-19 VACCINE (3 2024-2 6 season) 2024 08/26/2020, 08/05/2020 Adult Td,Tdap Booster 02/21/2032 02/20/2022 [...] on file Insurance [facility] H[facility] EPO [employer] O [facility] Care Teams Oncology Pharmacist Relationship Specialty Start Date End Date Pcp, Unknown PCP - General 02/20/22 Additional Source Comments The information contained in this document represents components of the legal health record. It is not the complete legal health record.[facility]
== END 2024-12-31 11:53 | disposition home or self-care (01) ==
LOC: HO.HOS 11:31
DX: S62.502B Fracture of unspecified phalanx of left thumb, initial encounter for open fracture (principal)
CPT/HCPCS: 99213

== ENCOUNTER 2025-01-15 14:04 | Outpatient (RCR) | payer OTHER, SELFPAY ==
--- NOTE | 2024-10-27 12:57 | MHC.OT.EP ---
[address] [phone] Occupational Therapy Plan of Care Patient Name: Harpreet Galvez Date of Evaluation: 10/27/24 Diagnosis: L thumb laceration w/ fx and tendon involvement Pain Location: base of L thumb (MP J) Pain Score: 1 Pain Scale Used: Numeric (0 - 10) Aggravating Factors: none reported Alleviating Factors: none reported pt reported minimal pain; mostly stiffness Assessment: Pt is a 29 yr old R hand dominant male who injured his L thumb while cleaning a garden tool (machete) on 08/31. He went to the ED at [facility] and his wound was debrided. Pt had surgery a week later (09/11) to address laceration (EPL segmental) and UCL repair. Pt was placed in a thumb spica cast which was removed last wed 10/22. He denies any splinting or bracing. Pt was given a 2lb weight restriction by the MD last week. Pt presents today w/ a 6 cm scar light in color; decreased ROM, strength, and functional use of his L hand. Pt would benefit from skilled OT therapy to address these deficits and pt to his PLOF. Frequency and Duration: The patient will be seen 2xs a week for 4 weeks Short Term Goals: Pt will increase L IP J flexion to 50 Pt will be able to oppose his L Thumb (distal tip) to the base of his SF Pt will be complaint w/ his HEP Commercial Loan Analyst Goals: Pt will have 0 extension lag of his IP J Pt will be able to use his L hand to carry 10 lbs w/out pain Pt will use his L hand to open jars w/out difficulty Treatment Plan: Therapeutic Exercise Therapeutic Activity Home Exercise Program Splinting Neuro Re-ed Patient Education Desensitization/Sensory Re-ed Edema Control ADL Training Ultrasound NMES Iontophoresis Paraffin Fluidotherapy MHP Cold Packs Joint Mobilization Soft Tissue Mobilization Kinesiotaping Electronically Signed By: Coni Cook OTR/L Please Sign and return to therapist. Thank you once again for your referral.
--- NOTE | 2024-11-18 13:46 | MHC.OT.OP ---
[address] [phone] F: [phone] Occupational Therapy Progress Note Patient Name: Harpreet Galvez Diagnosis: L thumb laceration w/ fx and tendon involvement Date of Surgery: 09/11/24 Date of Evaluation: 10/27/24 Treatments to Date: 7 Cancellations to Date: No Shows to Date: Subjective: I'm starting to feel something (when performing extension) Pain Score: 0 Pain Location: Objective Measures: Wrist extension 74*, flexion 82* IP extension 8*, flexion 64* MCP flexion 28* Status: Progressing Assessment: patient is s/p 10 weeks injury: Patient is making steady progress during therapy as he has full wrist flexion/extension and has increased his IP flexion to 64*, MCP flexion to 28*. He continues to have 8* of extension, however, this may be increased due to the edema that is present. His scar has decreased in thickness, is soft and moveable. OT will initiate strengthening. Short Term Goals: Pt will increase L IP J flexion to 50 Pt will be able to oppose his L Thumb (distal tip) to the base of his SF Pt will be complaint w/ his HEP Senior Living Goals: Pt will have 0 extension lag of his IP J Pt will be able to use his L hand to carry 10 lbs w/out pain Pt will use his L hand to open jars w/out difficulty Frequency and Duration: The patient will be seen 2xs a week for 4 weeks Treatment Plan: Therapeutic Exercise Therapeutic Activity Home Exercise Program Splinting Neuro Re-ed Patient Education Desensitization/Sensory Re-ed Edema Control ADL Training Ultrasound NMES Iontophoresis Paraffin Fluidotherapy MHP Cold Packs Joint Mobilization Soft Tissue Mobilization Kinesiotaping Other (see comments) Electronically Signed By: Astrid Madrid OTR/L, CLT Reviewed/agree with student documentation: Therapist:
--- NOTE | 2024-12-01 14:50 | MHC.OT.OP ---
[facility] Office [address] [phone] F: [phone] F: [phone] Occupational Therapy Progress Note Patient Name: Harpreet Galvez Diagnosis: L thumb laceration w/ fx and tendon involvement Date of Surgery: 09/11/24 Date of Evaluation: 10/27/24 Treatments to Date: 10 Cancellations to Date: No Shows to Date: Subjective: Just stiffness. Pain Score: 0 Pain Location: Objective Measures: Wrist extension 74*, flexion 82* IP extension 8*, flexion 64* MCP flexion 28* Status: Progressing Assessment: patient is s/p 12 weeks injury: At this time patient is making consistent progress towards his LTGs . His extension lag has decreased to 2* and continues to increase his flexion and is tolerating gentle strengthening well. OT will start to increase his strengthening program and continue to progress his tolerance. Well all goals are met he will be d/c'd from skilled OT. Short Term Goals: Pt will increase L IP J flexion to 50 GOAL MET Pt will be able to oppose his L Thumb (distal tip) to the base of his SF -PROGRESSING Pt will be complaint w/ his HEP- GOAL MET Group Home Goals: Pt will have 0 extension lag of his IP J -PROGRESSING (2*) Pt will be able to use his L hand to carry 10 lbs w/out pain - NOT ADDRESSED AT THIS TIME Pt will use his L hand to open jars w/out difficulty - NOT ADDRESSED AT THIS TIME Frequency and Duration: The patient will be seen 2x a week for 4 weeks Treatment Plan: Therapeutic Exercise Therapeutic Activity Home Exercise Program Splinting Neuro Re-ed Patient Education Desensitization/Sensory Re-ed Edema Control ADL Training Ultrasound NMES Iontophoresis Paraffin Fluidotherapy MHP Cold Packs Joint Mobilization Soft Tissue Mobilization Kinesiotaping Other (see comments) Electronically Signed By: Astrid Madrid OTR/Ronald, CLT Reviewed/agree with student documentation: Therapist:
--- NOTE | 2025-01-15 14:27 | MHC.OT.DC ---
[facility] Office [address] [facility] [address] [facility] [phone] F: [phone] F: [phone] Occupational Therapy Discharge Note Patient Name: Harpreet Galvez Provider: Paulina Smith Diagnosis: L thumb laceration w/ fx and tendon involvement Date of Surgery: 09/11/24 Date of Evaluation: 10/27/24 Date of Discharge: Treatments to Date: 20 Cancellations to Date: No Shows to Date: Discharge Status: Achieved Goals Improved Function Independent with HEP Discharge Summary: patient is d/c'd from skilled OT as she achieved all of his goals. Patient was a pleasure to work with. Thank you for your referral Electronically Signed By: BOGDAN Pierre/L, CLT Reviewed/agree with student documentation: Therapist: Please Sign and return to therapist, thank you for your referral.
== END 2025-01-15 14:29 | disposition home or self-care (01) ==
LOC: HO.OT 14:04
PROVIDERS: Visit Provider Orthopaedic Surgery
DX: S62.502D Fracture of unspecified phalanx of left thumb, subsequent encounter for fracture with routine healing (principal); S61.012D Laceration without foreign body of left thumb without damage to nail, subsequent encounter
CPT/HCPCS: 29130; 97035; 97110; 97140; 97165; 97535; 97760